=== PATIENT | female | born 1990 | race Caucasian/White ===

== ENCOUNTER 2024-03-28 19:26 | Inpatient (IN) | payer OTHER ==
[~2024-03-28] VITALS: Ht 167.6 cm; Wt 186.4 kg
[2024-03-28 19:31] VITALS: BP 157/101; PULSE 108; RESP 22; TEMP 98.3; O2SAT 96
[2024-03-28 19:45] VITALS: O2SAT 96
[2024-03-28] MEDS: LORazepam 1 MG TAB PO ONE (20:13)
[2024-03-28 20:48] LABS: BASOPHILS % (AUTO) 0.3 % (0.0-2.0); EOSINOPHILS % (AUTO) 0.3 % (0.0-4.0); HEMATOCRIT 38.7 % (36-48); HEMOGLOBIN 12.8 g/dL (12.0-16.0); LYMPHOCYTES # (AUTO) 3.5 K/uL (2.5-16.5); LYMPHOCYTES % (AUTO) 23.2 % (20.5-51.1); MEAN CORPUSCULAR HEMOGLOBIN 30 pg (27-31); MEAN CORPUSCULAR HGB CONC 33 g/dL (33-37); MEAN CORPUSCULAR VOLUME 90.2 fL (80-94); MONOCYTES # (AUTO) 0.7 K/uL (0.8-1.0); MONOCYTES % (AUTO) 4.8 % (1.7-9.3); NEUTROPHILS # (AUTO) 10.9 K/uL (1.8-7.7); NEUTROPHILS % (AUTO) 71.4 % (42.2-75.2); PLATELET COUNT (AUTO) 293 K/uL (140-450); RED BLOOD CELL COUNT(AUTO) 4.29 MIL/uL (4.20-5.40); RED CELL DISTRIBUTION WIDTH 15.2 % (11.6-13.7); WHITE BLOOD COUNT (AUTO) 15.2 K/uL (4.8-10.8)
[2024-03-28 21:03] LABS: ANION GAP 10.7 (8-16); CALCIUM 9.2 mg/dL (8.5-10.1); CARBON DIOXIDE 28.2 mmol/L (21-32); CREATININE 0.9 mg/dL (0.6-1.3); POTASSIUM 3.9 mmol/L (3.5-5.1)
[2024-03-28 21:07] LABS: PARTIAL THROMBOPLASTIN TIME 25.2 secs (22-35.6); PROTHROMBIN TIME 10.5 secs (10.8-13.4)
[2024-03-28] MEDS: ACETAMINOPHEN EXTRA STRENGTH 500 MG TAB PO ONE (22:22)
[2024-03-28] MEDS: KETOROLAC 30 MG/ML VIAL IVP ONE (22:27)
[2024-03-29] MEDS: LORazepam 2 MG/ML VIAL IVP ONE (00:48)
[2024-03-29] MEDS ORDERED: POTASSIUM CHLORIDE 10 MEQ TABER PO PRN (01:05)
[2024-03-29] MEDS ORDERED: MORPHINE SULFATE 2 MG/ML SYR IVP PRN (01:05)
[2024-03-29] MEDS ORDERED: HYDROcodone/APAP 5/325 MG 1 TAB TAB PO PRN (01:05)
[2024-03-29] MEDS ORDERED: KCL 20 MEQ IN 100 mL PREMIX 200 ML IV PRN (01:05)
[2024-03-29] MEDS ORDERED: ACETAMINOPHEN 325 MG TAB PO PRN (01:05)
[2024-03-29] MEDS ORDERED: ONDANSETRON 4 MG/2 ML VIAL IVP PRN (01:05)
[2024-03-29] MEDS ORDERED: MAGNESIUM OXIDE 400 MG TAB PO PRN (01:05)
[2024-03-29 02:51] VITALS: PULSE 90; RESP 16; RESP 18; O2SAT 96; O2SAT 97
[2024-03-29 04:00] VITALS: BP_SYST 125; BP_SYST 141; BP_DIAS 64; BP_DIAS 76; PULSE 73; PULSE 84; PULSE 89; RESP 20; TEMP 97; TEMP 97.7; O2SAT 97; O2SAT 98
[2024-03-29 08:00] VITALS: BP 121/59; PULSE 75; PULSE 86; RESP 18; TEMP 97.3; O2SAT 96
[2024-03-29] MEDS: ENOXAPARIN 40 MG/0.4 ML SYR SUBQ SCH (09:04)
[2024-03-29 11:32] LABS: BASOPHILS # (AUTO) 0.1 K/uL (0.00-0.22); BASOPHILS % (AUTO) 0.5 % (0.0-2.0); EOSINOPHILS # (AUTO) 0.1 K/uL (0-0.4); EOSINOPHILS % (AUTO) 0.6 % (0.0-4.0); HEMATOCRIT 35.7 % (36-48); HEMOGLOBIN 11.9 g/dL (12.0-16.0); LYMPHOCYTES # (AUTO) 2.7 K/uL (2.5-16.5); LYMPHOCYTES % (AUTO) 24.2 % (20.5-51.1); MEAN CORPUSCULAR HEMOGLOBIN 30 pg (27-31); MEAN CORPUSCULAR HGB CONC 33 g/dL (33-37); MEAN CORPUSCULAR VOLUME 90.2 fL (80-94); MONOCYTES # (AUTO) 0.3 K/uL (0.8-1.0); NEUTROPHILS # (AUTO) 8.1 K/uL (1.8-7.7); NEUTROPHILS % (AUTO) 71.7 % (42.2-75.2); PLATELET COUNT (AUTO) 228 K/uL (140-450); RED BLOOD CELL COUNT(AUTO) 3.96 MIL/uL (4.20-5.40); RED CELL DISTRIBUTION WIDTH 15.2 % (11.6-13.7); WHITE BLOOD COUNT (AUTO) 11.3 K/uL (4.8-10.8)
[2024-03-29 12:00] VITALS: BP 122/73; PULSE 87; PULSE 88; RESP 18; TEMP 97.6; O2SAT 96
[2024-03-29 12:06] LABS: APPEARANCE,URINE CLEAR (CLEAR); BILIRUBIN,URINE 1+ (NEGATIVE); BLOOD, URINE NEGATIVE (NEGATIVE); COLOR,URINE YELLOW (YELLOW); LEUKOCYTE ESTERASE ,URINE NEGATIVE (NEGATIVE); PROTEIN,URINE TRACE (NEGATIVE); UGLUCOSE NEGATIVE (NEGATIVE)
[2024-03-29 12:11] LABS: BACTERIA,URINE 1+ /HPF (None Seen); NITRITE, URINE POSITIVE (NEGATIVE); SQUAMOUS EPITHELIAL CELL,UR 0-3 (FEW) /LPF (0-3 (FEW))
[2024-03-29 12:12] LABS: RBC,URINE 0-5 /HPF (0-5); WBC,URINE 0-5 /HPF (0-5)
[2024-03-29 12:13] LABS: ICTOTEST NEGATIVE (NEGATIVE)
[2024-03-29 12:19] LABS: BENZODIAZEPINE, URINE POSITIVE ng/mL (NEG <=200)
[2024-03-29 12:20] LABS: AMPHETAMINE, URINE NEGATIVE ng/ml (NEG <=1000); BARBITURATE, URINE NEGATIVE ng/ml (NEG <=200); CANNABINOID, URINE NEGATIVE ng/mL (NEG <=50); COCAINE, URINE NEGATIVE ng/mL (NEG <=300); OPIATE, URINE NEGATIVE ng/mL (NEG <=2000); PHENCYCLIDINE SCREEN,URINE NEGATIVE ng/mL (NEG <=25)
[2024-03-29 16:00] VITALS: BP 137/87; PULSE 85; PULSE 88; RESP 18; TEMP 97.9; O2SAT 98
[2024-03-29] MEDS ORDERED: CYCL-711 PO (17:58)
[2024-03-29] MEDS ORDERED: ASPI-1822 PO (17:58)
[2024-03-29] MEDS ORDERED: ATOR40TA PO (17:58)
[2024-03-29] MEDS ORDERED: MEDS-TO-BEDS MC SCH (21:00)
== END 2024-03-29 18:40 | disposition home or self-care (01) | DRG 47 ==
LOC: MED 19:26 → OBSVTOIN 03-29 01:02 → MTU 03-29 01:02
PROVIDERS: ADMIT Student in an Organized Health Care Education/Training Program; ATTEND Student in an Organized Health Care Education/Training Program
PROC: B3251ZZ Computerized Tomography (CT Scan) of Bilateral Common Carotid Arteries using Low Osmolar Contrast (ICD-10-PCS; principal; 2024-03-29)
PROC: B32G1ZZ Computerized Tomography (CT Scan) of Bilateral Vertebral Arteries using Low Osmolar Contrast (ICD-10-PCS; 2024-03-29)
PROC: B32R1ZZ Computerized Tomography (CT Scan) of Intracranial Arteries using Low Osmolar Contrast (ICD-10-PCS; 2024-03-29)
PROC: B3281ZZ Computerized Tomography (CT Scan) of Bilateral Internal Carotid Arteries using Low Osmolar Contrast (ICD-10-PCS; 2024-03-29)
DX: G45.9 Transient cerebral ischemic attack, unspecified (principal); Z68.44 Body mass index [BMI] 60.0-69.9, adult; I10 Essential (primary) hypertension; E78.5 Hyperlipidemia, unspecified; E66.813 Obesity, class 3
CPT/HCPCS: 36415; 70450; 71045; 80048; 80305; 81001; 84484; 84702; 85025; 85610; 85730; 86886; 86900; 86901; 87081; 97116; 97163-GP; J1650; J1885; J2060; Q0092